=== PATIENT | male | born 1975 | race Two or more races ===

== ENCOUNTER 2022-01-10 13:01 | Emergency (ER) | payer OTHER ==
[~2022-01-10] VITALS: Ht 175.3 cm; Wt 127.0 kg
[2022-01-10] MEDS ORDERED: NAP500T PO (15:53)
[2022-01-10 17:00] VITALS: BP 145/100
[2022-01-10] MEDS ORDERED: CYCLOBENZAPRINE HCL 10 MG TAB PO ONE (17:45)
== END 2022-01-10 18:16 | disposition home or self-care (01) ==
LOC: EDBD 13:01 → ER 13:03
DX: S60.221A Contusion of right hand, initial encounter (principal); S30.0XXA Contusion of lower back and pelvis, initial encounter; S80.211A Abrasion, right knee, initial encounter; K21.9 Gastro-esophageal reflux disease without esophagitis; Z79.899 Other long term (current) drug therapy; Z88.0 Allergy status to penicillin; V29.49XA Motorcycle driver injured in collision with other motor vehicles in traffic accident, initial encounter; Y93.89 Activity, other specified; Y92.410 Unspecified street and highway as the place of occurrence of the external cause; Y99.8 Other external cause status
CPT/HCPCS: 72220; 73110; 73130